=== PATIENT | male | born 1985 | race Caucasian/White ===

== ENCOUNTER 2017-04-01 22:08 | Emergency (ER) | payer OTHER ==
[~2017-04-01] VITALS: Ht 180.3 cm; Wt 111.1 kg
[~2017-04-01 22:08] MED LIST: HYDROCODONE-AP1 EAC6 PO; KEFLEX250 MG PO
[2017-04-01] MEDS ORDERED: KEFLEX500 M1 PO (23:33)
[2017-04-02 00:01] VITALS: BP 138/80
== END 2017-04-02 00:02 | disposition home or self-care (01) ==
LOC: M.ERS 22:08
DX: S61.213A Laceration without foreign body of left middle finger without damage to nail, initial encounter (principal); F17.210 Nicotine dependence, cigarettes, uncomplicated; W27.0XXA Contact with workbench tool, initial encounter; Y93.89 Activity, other specified; Y92.89 Other specified places as the place of occurrence of the external cause; Y99.8 Other external cause status